=== PATIENT | female | born 1985 | race Caucasian/White ===

== ENCOUNTER 2016-10-20 13:57 | Observation (INO) | payer BC ==
[~2016-10-20 13:57] MED LIST: IBUP-1222 PO
== END 2016-10-20 15:00 | disposition home or self-care (01) ==
LOC: LDOP 13:57 → LDIP 14:06
PROVIDERS: ADMIT Obstetrics & Gynecology; ATTEND Obstetrics & Gynecology
DX: O72.1 Other immediate postpartum hemorrhage (principal)
CPT/HCPCS: G0378